=== PATIENT | female | born 1970 ===

== ENCOUNTER 2024-07-12 11:56 | Emergency (ER) | payer OTHER, SELFPAY ==
[2024-07-12 11:57] VITALS: BP 152/93
--- NOTE | 2024-07-12 12:21 | ED.GENMED ---
History of Present Illness
General
Chief Complaint: Abdominal Symptoms
Source: patient
Time Seen by Provider: 07/12/24 12:05
History of Present Illness
History of Present Illness:
54yoF with a history of psoriatic and rheumatoid arthritis on Rivoq, type 2 diabetes, obesity, and asthma presenting for evaluation of flank pain. She started with R flank pain yesterday. Pain started to radiate to the RUQ today. Pain waxes and
wanes. Pain improves with certain positions. She also reports urinary frequency over the past 2 days. She is having nausea but denies any vomiting. She believes she has a kidney stone but denies any history of this. She denies any fevers, chills,
dysuria, vomiting, chest pain, shortness of breath.
Past History
Past History
ED Past Medical History: Asthma, NIDDM and Other (IBS, psoriasis, anxiety, pneumonia)
Social History
Tobacco: Smoker
Phy Exam
General Physical Exam
General Presentation: well appearing and no apparent distress
General age: appears stated age
General Skin: warm and dry
General Habitus: normal
General Mental: alert
ENT Exam
ENT Exam: normocephalic
Cardiovascular Exam
Cardiovascular Exam: regular rate/rhythm and no murmur
Pulmonary Exam
Pulmonary Exam: lungs clear, no respiratory distress, no rales, no crackles, no rhonchi and no wheezing
Gastrointestinal Exam
Gastrointestinal Exam: soft, non distended, no cva tenderness and other (+RUQ tenderness on exam. Negative Watson's sign. No CVA tenderness. No rebound or guarding.)
Neurological Exam
Neurological Exam: alert
[place] Coma Scale
Eye Opening: Spontaneous
Verbal Response: Oriented
Motor Response: Obeys Commands
GCS Total Score: 15
Skin Exam
Skin Exam: normal color and warm/dry
Psychiatric Exam
Psychiatric Exam: normal mood/affect
Course
Orders/Labs/Results
Orders:
Orders
07/12/24 12:20
CT Abd/pel Without Iv Or Oral Urgent
Comment:
Reason For Exam: R flank pain
0.9% Sodium Chloride 500 ml [Nss] 500 ml IV BOLUS
HYDROmorphone [Dilaudid] 0.5 mg IV NOW STA
Ondansetron Injectable [Zofran] 4 mg IV NOW STA
07/12/24 12:26
0.9% Sodium Chloride 1000 ml [Nss] 1,000 ml IV BOLUS
07/12/24 12:46
Complete Blood Count/With Diff Urgent
Comprehensive Metabolic Panel Urgent
Lipase Urgent
07/12/24 12:49
Urinalysis Reflex To Culture Urgent
Date Specimen was Collected: 07/12/24
Time Specimen was Collected: 12:46
Urine Microscopic Reflex Cult Urgent
07/12/24 13:18
US Abdomen Limited Urgent
Reason For Exam: RUQ pain, elevated lipase
07/12/24 13:25
D-Dimer Urgent
07/12/24 14:06
CR Chest - 2 Views Urgent
Comment:
Reason For Exam: R flank pain
Abnormal Lab Results
07/12/24 07/12/24
12:46 12:49
MCH 31.5 H pg
(27.0-31.0)
Creatinine 0.5 L mg/dL
(0.6-1.0)
AST 44 H U/L
(14-36)
ALT 39 H U/L
(0-35)
Lipase 643 H U/L
(23-300)
Leukocyte Esterase Rfl Trace A
(Negative)
Urine Bacteria (Reflex) Few A
(Negative)
07/12/24 12:46
07/12/24 12:46
Vital Signs
Initial and Last Documented VS:
Initial Vital Signs
Temp Pulse Resp BP Pulse Ox
98.3 F 74 16 152/93 98
07/12/24 11:57 07/12/24 11:57 07/12/24 11:57 07/12/24 11:57 07/12/24 11:57
Last Documented Vital Signs
Temp Pulse Resp BP Pulse Ox
98.3 F 69 20 134/79 95
07/12/24 11:57 07/12/24 18:05 07/12/24 18:05 07/12/24 18:05 07/12/24 18:05
MDM/Problems Addressed
Differential Diagnosis Includes:
54yoF here with R flank pain since yesterday. Radiates to RUQ. Also c/o urinary frequency and nausea. She is afebrile and hemodynamically stable. She is well appearing in no distress. No CVA tenderness or signs of peritonitis on abdominal exam.
Differential diagnosis includes but is not limited to: kidney stone, pyelonephritis, biliary colic, musculoskeletal
Initial ED plan: Check abdominal labs, UA, and CT abdomen without contrast. IV Dilaudid, Zofran, and fluid bolus for symptoms.
*Critical Care Note
Total Time (30-74mins, 75-104mins- exclusive of procedures): Not Applicable
Update Note
Update Note:
Labs reveal a mild transaminitis with AST 44 and ALT 39 which are improved from prior labs. Lipase also elevated at 643 which is <3x ULN. Remainder of labs unremarkable including normal white count and renal function. No overt signs of infection
on urinalysis. CT is negative for ureterolithiasis. Gallbladder and pancreas appear normal on CT. D-dimer and CXR added which are normal. RUQ ultrasound obtained which is negative other than mild fatty liver. Patient feeling improved on
reassessment. Unclear etiology of symptoms, possibly musculoskeletal vs. passed gallstone vs. early shingles. Exam and history inconsistent with pancreatitis. No indication for hospitalization at this time and patient would like to go home.
Supportive care discussed and prescription provided for Zofran. Advised follow-up with PCP and ED return precautions discussed. She was discharged in stable condition.
ED Attending Note
-
Portions of this chart may have been created with voice recognition software.� Occasional wrong word or��sound alike� substitutions may have occurred due to the inherent limitations of voice recognition software.
Discharge Plan
Departure
Patient Disposition: Home (Routine Discharge)
Date of Disposition: 07/12/24
Time of Disposition: 17:32
Patient with high blood pressure during this ER visit?: Yes
Discharge Problem:
Right flank pain, Right upper quadrant abdominal pain
Instructions: Flank Pain (DC)
Prescriptions:
New
ondansetron 4 mg tablet,disintegrating
4 mg PO Q6H PRN (Reason: nausea and vomiting) Qty: 20 0RF
No Action
metformin 500 MG tablet
500 mg PO BID
cetirizine 10 MG tablet
10 mg PO DAILY
zolpidem 10 MG tablet
10 mg PO HS
Patient Comments:
02/07/22 pt picked up 01/21/22 #30
albuterol sulfate 1 PUFF HFA aerosol inhaler
2 puff inhalation R Q4HPRN PRN (Reason: sob)
rosuvastatin 10 MG tablet
10 mg PO HS
fluticasone propion-salmeterol 1 EACH aerosol powdr breath activated
1 puff inhalation R BID
sumatriptan succinate 100 MG tablet
100 mg PO DAILYPRN PRN (Reason: migraines)
pantoprazole 40 MG tablet,delayed release (DR/EC)
40 mg PO DAILYPRN PRN (Reason: INDIGESTION)
cholecalciferol (vitamin D3) [Vitamin D3] 125 mcg (5,000 unit) Tablet
125 mcg PO DAILY
Rinvoq 15 mg Tablet Extended Release 24 Hr
15 mg PO DAILY
Referrals:
Abram Rubio MD [Family Provider] -
Activity Restrictions/Additional Instructions:
Apply heat to affected area. Take Tylenol and ibuprofen as needed for pain. Take Zofran as needed for nausea.
Please follow-up with your family doctor. Return to the ER with any new or worsening symptoms.
Interventions
Interventions:
*Risk Screen - Suicide Last Done: 07/12/24 11:57
*General Assessment Last Done: 07/12/24 11:57
*Neglect/Abuse Screening Last Done: 07/12/24 11:57
ED- Fall Risk Assessment Last Done: 07/12/24 15:08
*ED COVID-19 Vaccine History Last Done: 07/12/24 13:28
*Nursing Disposition Last Done: 07/12/24 18:05
TT-Xhfozo-Mnullgeokr Assessment Last Done: 07/12/24 16:58
Discharge Date and Time
Discharge Date/Time: 07/12/24 18:09
Print Language: SYRIAC
[2024-07-12] MEDS: NSS 1000 IV (12:47)
[2024-07-12] MEDS: DILAUDID 0.5 MG IV (12:48)
[2024-07-12] MEDS: ZOFRAN 4 MG IV (12:48)
[2024-07-12 13:01] LABS: Urine Albumin Negative (Neg - Trace); Urine Bilirubin Negative (Negative); Urine Character Clear (Clear); Urine Color Yellow; Urine Glucose Negative (Negative); Urine Ketone Negative (Negative); Urine Leukocyte Trace (Negative); Urine Nitrite Negative (Negative); Urine Occult Blood Negative (Negative); Urine Urobilinogen Negative (Neg - 1+)
[2024-07-12 13:02] LABS: % Basophils 0.4 % (0-2); % Eosinophils 0.6 % (0-6); % Immature Granulocytes 0.3 % (0-0.5); % Lymphocytes 39.5 % (20.5-51.1); % Monocytes 8.6 % (1.7-9.3); % Neutrophils 50.6 % (42.2-75.2); Absolute Lymphocytes 2.8 10^3/uL (1.2-3.4); Absolute Monocytes 0.6 10^3/uL (0.1-0.6); Absolute Neutrophils 3.6 10^3/uL (1.4-6.5); Hematocrit 41.5 % (37.0-47.0); Hemoglobin 13.7 g/dL (12.0-16.0); Mean Corpuscular Hgb 31.5 pg (27.0-31.0); Mean Corpuscular Volume 95.4 fL (81.0-99.0); Mean Platelet Volume 9.1 fL (7.4-10.4); Nucleated Red Blood Cells % 0 %; Platelet Count 384 10^3/uL (130-400); Red Blood Cell Count 4.35 10^6/uL (4.20-5.40); Red Cell Dist. Width 13.7 % (11.5-14.5); White Blood Cell Count 7.1 10^3/uL (4.8-10.8)
[2024-07-12 13:13] LABS: ALT (SGPT) 39 U/L (0-35); AST (SGOT) 44 U/L (14-36); Albumin 4.5 g/dl (3.5-5.0); Alkaline Phosphatase 111 U/L (38-126); Blood Urea Nitrogen 13 mg/dl (7-17); Calcium 9.5 mg/dl (8.4-10.2); Carbon Dioxide 29 mmol/L (22-30); Chloride 105 mmol/L (98-107); Glucose 97 mg/dl (70-99); Lipase 643 U/L (23-300); Potassium 4.3 mmol/L (3.5-5.1); Sodium 141 mmol/L (135-145); Total Bilirubin 0.2 mg/dl (0.2-1.3); Total Protein 6.7 g/dl (6.3-8.2); eGFR > 60.00
[2024-07-12 13:28] VITALS: BMI 42.4
[2024-07-12 13:32] LABS: Urine Bacteria Few (Negative); Urine Red Blood Cell 0-2 /HPF (0-2); Urine White Cell 0-2 /HPF (0-5)
[2024-07-12 14:00] LABS: D-Dimer < 0.27 ug/mlFEU (0.00-0.50)
[2024-07-12 16:05] VITALS: BP 132/75
[2024-07-12 17:45] VITALS: BP 134/79
[2024-07-12 18:05] VITALS: BP 134/79
== END 2024-07-12 18:09 | disposition home or self-care (01) ==
LOC: EMR 11:56
PROVIDERS: Physician Assistant; EMERGENCY PHYSICIAN Emergency Medicine; FAMILY PHYSICIAN Hospitalist
DX: R10.11 Right upper quadrant pain (principal); K76.0 Fatty (change of) liver, not elsewhere classified; E11.9 Type 2 diabetes mellitus without complications; J45.909 Unspecified asthma, uncomplicated; F17.200 Nicotine dependence, unspecified, uncomplicated; M06.9 Rheumatoid arthritis, unspecified
CPT/HCPCS: 99284; 96374; 96375; 96361; 71046; 74176; 76705; 80053; 81003; 81015; 83690; 85025; 85379

== ENCOUNTER 2025-08-08 13:43 | Inpatient (IN) | payer OTHER, SELFPAY ==
[2025-08-08 09:29] VITALS: BP 124/95
--- NOTE | 2025-08-08 10:22 | ED.GENMED ---
History of Present Illness
<Gilberto Patel MD, Resident - Last Filed: 08/08/25 13:04>
General
Chief Complaint: Ear Problem
Time Seen by Provider: 08/08/25 09:58
History of Present Illness
History of Present Illness:
55 yo F PMH psoriatic arthritis, eczema, alopecia areata on rinvoq, COPD, T2DM (last a1c 5.3%) p/w right ear pain for 5-6 days duration.
She used a neti pot 2 weeks ago, and heard a loud pop but symptoms began since 5-6 days ago. She describes sharp stabbing pain 8/10 severity near right ear, associated with some hearing loss, tinnitus, pulsatile sensation. She reports a sensation of
dysequlibrium but denies vertigo. She denies changes in vision, or focal weakness.
On monday, she started a course of amoxicillin but reports that her pain has not improved.
She also endorses fevers at home.
She denies any exposure to water or recent airplane travel.
She has used tylenol and nsaids for the pain control.
She otherwise denies chest pain, dyspnea.
Social: ongoing, current smoker
no EtOH
no recreational drugs
Past History
<Gilberto Patel MD, Resident - Last Filed: 08/08/25 13:04>
Past History
ED Past Medical History: Asthma, NIDDM and Other (IBS, psoriasis, anxiety, pneumonia)
Social History
Tobacco: Smoker
Alcohol: None
Drug: None
Phy Exam
<Gilberto Patel MD, Resident - Last Filed: 08/08/25 13:04>
Physical Exam
Physical Exam:
VS: BP 124/95; HR 105; T 99.3; SpO2 95%
General: appears to be in some distress
HEENT: right tympanic membrane appears erythematous but no purulence on my exam. right ear pinna is swollen, erythematous, and tender to palpation. region behind right ear is also tender to palpation on my exam.
Neuro: PERRLA, EOMI, upper and lower extremities are grossly intact
CV: no murmurs on my exam
Pulm: CTAB
GI: no tenderness to palpation
MSK: no lower extremity edema
Course
<Gilberto Patel MD, Resident - Last Filed: 08/08/25 13:04>
Orders/Labs/Results
Orders:
Orders
08/08/25 10:30
[address] Facial Bones W/o Iv Contras Urgent
Comment: please image mastoids
Reason For Exam: right ear pain, right mastoid tenderness
08/08/25 10:32
Ketorolac [Toradol] 15 mg IV NOW ONE
08/08/25 10:39
CRP [C-Reactive Protein] Urgent
Complete Blood Count/With Diff Urgent
Comprehensive Metabolic Panel Urgent
ESR [Erythrocyte Sed Rate] Urgent
08/08/25 11:57
Morphine Sulfate 4 mg IV NOW ONE
Ondansetron Injectable [Zofran] 4 mg IV NOW ONE
08/08/25 12:53
Aztreonam [Azactam] 2,000 mg IV NOW STA
MetroNIDAZOLE 500 MG/100 ML [Flagyl 500 mg] 100 ml IV NOW
Vancomycin [Vancocin] 2,000 mg 0.9% Sodium Chloride 500 ml [Nss] 500 ml IV NOW
08/08/25 12:59
Sterile Water [Sterile Water For Injection] 10 ml .ROUTE .STK-MED ONE
Abnormal Lab Results
08/08/25
10:39
RBC 4.14 L 10^6/uL
(4.20-5.40)
Absolute Lymphs (auto) 1.1 L 10^3/uL
(1.2-3.4)
Absolute Monos (auto) 0.7 H 10^3/uL
(0.1-0.6)
Neutrophils % 75.4 H %
(42.2-75.2)
Lymphocytes % 14.3 L %
(20.5-51.1)
Monocytes % 9.4 H %
(1.7-9.3)
ESR 32 H mm/hour
(0-20)
Creatinine 0.5 L mg/dL
(0.6-1.0)
C-Reactive Protein 72.00 H mg/L
(0.0-10.00)
08/08/25 10:39
08/08/25 10:39
Vital Signs
Initial and Last Documented VS:
Initial Vital Signs
Temp Pulse Resp BP Pulse Ox
99.3 F 105 16 124/95 95
08/08/25 09:29 08/08/25 09:29 08/08/25 09:29 08/08/25 09:29 08/08/25 09:29
Last Documented Vital Signs
Temp Pulse Resp BP Pulse Ox
99.3 F 105 16 124/95 95
08/08/25 09:29 08/08/25 09:29 08/08/25 09:29 08/08/25 09:29 08/08/25 10:22
<Orville Ortiz, DO - Last Filed: 08/08/25 13:11>
Orders/Labs/Results
Orders:
Orders
08/08/25 10:30
CT Facial Bones W/o Iv Contras Urgent
Comment: please image mastoids
Reason For Exam: right ear pain, right mastoid tenderness
08/08/25 10:32
Ketorolac [Toradol] 15 mg IV NOW ONE
08/08/25 10:39
CRP [C-Reactive Protein] Urgent
Complete Blood Count/With Diff Urgent
Comprehensive Metabolic Panel Urgent
ESR [Erythrocyte Sed Rate] Urgent
08/08/25 11:57
Morphine Sulfate 4 mg IV NOW ONE
Ondansetron Injectable [Zofran] 4 mg IV NOW ONE
08/08/25 12:53
Aztreonam [Azactam] 2,000 mg IV NOW STA
MetroNIDAZOLE 500 MG/100 ML [Flagyl 500 mg] 100 ml IV NOW
Vancomycin [Vancocin] 2,000 mg 0.9% Sodium Chloride 500 ml [Nss] 500 ml IV NOW
08/08/25 12:59
Sterile Water [Sterile Water For Injection] 10 ml .ROUTE .STK-MED ONE
Abnormal Lab Results
08/08/25
10:39
RBC 4.14 L 10^6/uL
(4.20-5.40)
Absolute Lymphs (auto) 1.1 L 10^3/uL
(1.2-3.4)
Absolute Monos (auto) 0.7 H 10^3/uL
(0.1-0.6)
Neutrophils % 75.4 H %
(42.2-75.2)
Lymphocytes % 14.3 L %
(20.5-51.1)
Monocytes % 9.4 H %
(1.7-9.3)
ESR 32 H mm/hour
(0-20)
Creatinine 0.5 L mg/dL
(0.6-1.0)
C-Reactive Protein 72.00 H mg/L
(0.0-10.00)
08/08/25 10:39
08/08/25 10:39
Vital Signs
Initial and Last Documented VS:
Initial Vital Signs
Temp Pulse Resp BP Pulse Ox
99.3 F 105 16 124/95 95
08/08/25 09:29 08/08/25 09:29 08/08/25 09:29 08/08/25 09:29 08/08/25 09:29
Last Documented Vital Signs
Temp Pulse Resp BP Pulse Ox
99.3 F 105 16 124/95 95
08/08/25 09:29 08/08/25 09:29 08/08/25 09:29 08/08/25 09:29 08/08/25 10:22
<Gilberto Patel MD, Resident - Last Filed: 08/08/25 13:04>
MDM/Problems Addressed
Differential Diagnosis Includes:
acute otitis externa, acute otitis media, mastoiditis, barotrauma, abscess
MDM/Problems Addressed:
right ear pain, without improvement on amoxicillin. Could be otitis media with erythematous tympanic membrane or externa since the pinna is tender/swollen. mastoiditis can be considered because she reports some tenderness near the mastoid.
She is immunocompromised with rinvoq usage and [facility] T2DM.
reassuringly, she is otherwise neurologically intact without any focal deficits.
Plan:
CBC
CMP
ESR
CRP
CT facial bones w/o IV contrast for imaging mastoids
IV toradol 15mg once for pain control
Update:
patient reports persistent pain despite toradol
morphine 4mg IV once and ondansetron 4mg IV once administered
Update:
CT facial bones showed right otomastoiditis
IV aztreonam, IV vancomycin, IV metronidazole ordered
Dispo: admit
<Gilberto Patel MD, Resident - Last Filed: 08/08/25 13:04>
*Pulse Oximetry
SaO2: 95
Oxygen Mode of Delivery: Room air
Patient hypoxic: no
*Critical Care Note
Total Time (30-74mins, 75-104mins- exclusive of procedures): Not Applicable
ED Attending Note
<Gilberto Patel MD, Resident - Last Filed: 08/08/25 13:04>
-
Portions of this chart may have been created with voice recognition software.� Occasional wrong word or��sound alike� substitutions may have occurred due to the inherent limitations of voice recognition software.
<Orville Ortiz, DO - Last Filed: 08/08/25 13:11>
ED Attending Note
Patient seen and examined by attending physician: Yes
I performed a history and physical exam of patient and discussed management with resident, I reviewed resident's note and agree with documented findings and plan of care.: Yes
ED Attending Note:
I have reviewed and agree with history treatment plan by Gilberto Patel MD. My exam revealed mild right mastoid tenderness, erythematous right tympanic membrane. Suspect otitis media, will rule out mastoiditis with CT scan. Treat with zosyn,
vancomycin for mastoiditis.
Discharge Plan
Departure
Patient Disposition: Admit
Date of Disposition: 08/08/25
Time of Disposition: 13:02
Presentation/result/management discussed w/ accepting MD/DO: Hospitalist
Patient with high blood pressure during this ER visit?: Yes
Condition: Good
Discharge Problem:
Acute mastoiditis
Prescriptions:
No Action
metformin 500 MG tablet
500 mg PO BID
cetirizine 10 MG tablet
10 mg PO DAILY
zolpidem 10 MG tablet
10 mg PO HS
Patient Comments:
02/07/22 pt picked up 01/21/22 #30
albuterol sulfate 1 PUFF HFA aerosol inhaler
2 puff inhalation R Q4HPRN PRN (Reason: sob)
rosuvastatin 10 MG tablet
10 mg PO HS
fluticasone propion-salmeterol 1 EACH aerosol powdr breath activated
1 puff inhalation R BID
sumatriptan succinate 100 MG tablet
100 mg PO DAILYPRN PRN (Reason: migraines)
pantoprazole 40 MG tablet,delayed release (DR/EC)
40 mg PO DAILYPRN PRN (Reason: INDIGESTION)
cholecalciferol (vitamin D3) [Vitamin D3] 125 mcg (5,000 unit) Tablet
125 mcg PO DAILY
Rinvoq 15 mg Tablet Extended Release 24 Hr
15 mg PO DAILY
ondansetron 4 mg tablet,disintegrating
4 mg PO Q6H PRN (Reason: nausea and vomiting) Qty: 20 0RF
Referrals:
Abram Rubio MD [Family Provider]
Interventions
Interventions:
*General Assessment Last Done: 08/08/25 10:20
*Neglect/Abuse Screening Last Done: 08/08/25 09:31
*ED COVID-19 Vaccine History Last Done: 08/08/25 10:20
*ED Influenza Vaccine History Last Done: 08/08/25 10:20
*Risk Screen - Suicide (C-SSRS) Last Done: 08/08/25 09:31
Discharge Date and Time
Print Language: UPPER SORBIAN
[2025-08-08 10:39] VITALS: BMI 38.0
[2025-08-08] MEDS: TORADOL 15 MG IV (10:43)
[2025-08-08 10:54] LABS: Hematocrit 38.1 % (37.0-47.0); Hemoglobin 12.8 g/dL (12.0-16.0); Mean Corp Hgb Conc. 33.6 g/dL (33.0-37.0); Mean Corpuscular Volume 92.0 fL (81.0-99.0); Nucleated Red Blood Cells % 0 %; Platelet Count 304 10^3/uL (130-400); Red Cell Dist. Width 14.1 % (11.5-14.5)
[2025-08-08 11:19] LABS: C-Reactive Protein 72.00 mg/L (0.0-10.00)
[2025-08-08 11:33] LABS: ALT (SGPT) 17 U/L (0-35); AST (SGOT) 25 U/L (14-36); Albumin 4.2 g/dl (3.5-5.0); Alkaline Phosphatase 65 U/L (38-126); Blood Urea Nitrogen 8 mg/dl (7-17); Calcium 9.2 mg/dl (8.4-10.2); Carbon Dioxide 28 mmol/L (22-30); Chloride 104 mmol/L (98-107); Estimated Creatinine Clearance 119 ml/min; Glucose 71 mg/dl (70-99); Potassium 4.3 mmol/L (3.5-5.1); Sodium 137 mmol/L (135-145); Total Protein 6.7 g/dl (6.3-8.2); eGFR > 60.00
--- NOTE | 2025-08-08 11:51 | EDRN ---
Updated patient on labs and that still waiting for CT read, reports pain meds did not touch her pain, informed provider
[2025-08-08] MEDS: ZOFRAN 4 MG IV (12:02)
[2025-08-08] MEDS: MORPHINE SULFATE 4 MG IV (12:03)
--- NOTE | 2025-08-08 13:00 | W.PN.UPDATE ---
Update Note
Progress Note Update
This note serves as an addendum to the H&P by dairy bar manager Tad PETERSON
HPI
55M Obese current heavy smoker ( 1ppd)
HX DMT2 chr Rinvoq (TONY inhibitor) for eczema, psoriatic arthritis, alopecia aerata, on Wegovy for Obesity
- seen at ER for Rt mastoid tenderness
- report fever and chills at ER
- [employer] Day 4 of Amoxicillin and tolerating
- Prior HX of anaphylaxis reaction to Ceftin plus ADEs to Avelox
- Hold of Aztreonam per ER
Relevant VS
08/08/25
09:29
Temp 99.3 F
Pulse 105
Resp Rate 16
Blood pressure 124/95
SaO2 95
Oxygen Mode of Delivery Room air
PE:
Class II Obese BMT 38
Gen: Not toxic
HEENT:
- Severe Rt mastoid tenderness
- No purulent drainage via EAC
- mild R Maxillary tenderness
Neck: supple
Lungs: CTA
Cor: RRR ST no murmur
Abdomen: soft obese
BLOW UP OPERATOR: AAO3, NFND
MS: no edema
Psych: Nl mood and affect
Relevant Data
Labs
08/08/25
10:39
WBC 7.9
Creatinine 0.5 L
eGFR > 60.00
C-Reactive Protein 72.00 H
2 X BCx sent before just before IV vancomycin
Facial bone CT WO
Findings consistent with right otomastoiditis.
ASSESSMENT & PLAN
Immuno compromised host being on Rinvoq (TONY inhibitor) for eczema, psoriatic arthritis
- BCx sent
- Hold Rinvoq and Wegovy
R otomastoiditis per clinical and CT evidence
Severe Rt mastoid tenderness
- No purulent drainage via EAC
- mild R Maxillary tenderness
- s/p amoxicillin 4 days before coming to ED.
- s/p IV vancomycin + IV metronidazole at ER
- Hold IV aztreonam in ED
- Will cont Zosyn alone for now
- counseled to stop smoking
- ENT consulted
DMT2
- Hold Metformin
- add ISS low
Sinus tachy suspect Nicotine WD
- Nicotine [employer]TER if she wish
DVT Px: LMWH
Full code
IP MS
[2025-08-08] MEDS: VANCOCIN 540 MG IV (13:15)
--- NOTE | 2025-08-08 13:24 | HPS.HSE ---
Family Physician
-
Family Physician: Abram Rubio MD
Chief Complaint
-
Right Ear Pain
History of Present Illness
Patient is a 55 y/o female past medical history of diabetes, hyperlipidemia, asthma/COPD, and eczema/psoriatic/alopecia on Rinvoq who presents with severe right ear pain. Patient reports she used a Neti-Pot about 2 weeks ago and heard a loud pop.
About 5 days ago she developed severe right ear pain. She reports associated fevers at the onset of symptoms. She reports she is unable to hear out of the right ear, and associated tinnitus sometimes. She has been taking amoxicillin for the past
4 days without any improvement in the pain in her ear.y
Medical History
Past Medical History
Past Medical History: Reports Other
Additional Past Medical History:
Diabetes Mellitus, Type II
Hyperlipidemia
Asthma / COPD
Eczema
Psoriatic Arthritis
Alopecia Areata
Past Surgical History: Reports Other
Social History
Tobacco: Smoker (~1 PPD)
Family History
Family History: Not pertinent
Allergies / Home Medications
Allergies reflects when Allergies were last updated in [employer].
Home Medications with original date entered in [employer]
Allergy/Medication List:
Allergies
Allergy/AdvReac Type Severity Reaction Status Date / Time
cefuroxime (From Ceftin) Allergy Anaphylaxis Verified 07/12/24 11:57
moxifloxacin (From Avelox) Allergy Nausea Verified 07/12/24 11:57
Home Medications
metformin 500 mg tablet 500 mg PO BID Diabetes 02/05/22
zolpidem 10 mg tablet 10 mg PO HS Sleep 02/05/22
rosuvastatin 10 mg tablet 10 mg PO HS High cholesterol 02/07/22
amoxicillin 875 mg tablet 875 mg PO BID Infection 08/08/25
semaglutide (weight loss) 2.4 mg/0.75 mL subcutaneous pen injector (Wegovy) 2.4 mg SC MO Weight Gain 08/08/25
tapinarof 1 % topical cream (Vtama) 1 applic topical DAILYPRN PRN skin issuses 08/08/25
upadacitinib 30 mg tablet,extended release 24 hr (Rinvoq) 30 mg PO DAILY 08/08/25
Review of Systems
-
A 12 point ROS was completed and negative except as noted: Yes
Constitutional: Reports Fever
Respiratory: Denies Cough or Trouble Breathing
Cardiac: Denies Chest Pain or Palpitations
Physical Exam
Vital Signs
Vital Signs
Temp Pulse Resp BP Pulse Ox
99.3 F 105 16 124/95 95
08/08/25 09:29 08/08/25 09:29 08/08/25 09:29 08/08/25 09:29 08/08/25 10:22
Physical Exam
General: Comfortable and Conversant
HEENT: Anicteric, Moist mucous membranes and Other (Significant tenderness to palpation right mastoid area; Neck supple)
Respiratory: Clear and Non Labored Respirations
Cardiac: S1/S2 and Regular Rhythm; No Murmur
GI: Soft and Non Tender
Rectal: Deferred by Provider
Musculoskeletal: No No Clubbing or No Cyanosis
Skin: Warm and Dry
Neuro: Awake, Alert, Oriented and Nonfocal/grossly intact
Psych: Calm
Laboratory Results
-
08/08/25 10:39
08/08/25 10:39
Laboratory Results
Total Bilirubin 0.5 mg/dl (0.2-1.3) 08/08/25 10:39
AST 25 U/L (14-36) 08/08/25 10:39
ALT 17 U/L (0-35) 08/08/25 10:39
Alkaline Phosphatase 65 U/L (38-126) 08/08/25 10:39
Data Reviewed
-
Lab Data: Labs Reviewed by me
Impression/Plan
-
Right Otomastoiditis
-Consult ENT
-Continue vancomycin and Zosyn
-Check blood cultures
Diabetes Mellitus, Type II
-Check Hgb1c
-Hold metformin
-Monitor sugars and continue coverage insulin
Hyperlipidemia
-Continue rosuvastatin
Class II Obesity
-Patient using Wegovy as outpatient
-Affects all aspects of care
Nicotine Dependence / Tobacco Use Disorder
-Encourage smoking cessation
-Offered nicotine patch which patient declined
Eczema / Psoriatic Arthritis / Alopecia Areata
-Hold Rinvoq in setting of active infection
DVT proph: Lovenox
Code Status: Full Code
[2025-08-08 13:29] VITALS: BP 112/67
--- NOTE | 2025-08-08 13:30 | EDRN ---
Hospitalist in to see patient and then ENT in to see patient as well, patient being admitted to the hospital, no further complaints at this time.
--- NOTE | 2025-08-08 14:21 | CM ---
Chart reviewed and spoke with patient at ED bedside
She lives with friend Erik
1 SH no JOAN
Independent with ADLs and no DME
PCP Abram Rubio
[facility] in [place]
no hx of VN nor SNF
DCP is to go home no needs
friend can drive home
cm will continue to follow up for any dcp needs
--- NOTE | 2025-08-08 14:46 | CON.MD ---
Consultation - Medical
-
This 55-year-old woman presents with a several day history of right sided hearing loss and ear pain. She has pain around the ear. She has a history of ear infections in the past. She is otherwise pretty healthy. She has not had a cold or sinus
infection. She has been on a course of antibiotics without significant relief of her symptoms. She has a history of mev-pdvdqbv-diorasixf diabetes mellitus CT scan showed evidence of partial opacification of her right mastoid consistent with an
acute ear infection or serous otitis media. There is no evidence of bony erosion.
Past medical history: Acute otitis media, COPD exacerbation, asthma exacerbation, acute respiratory failure with hypoxia
Allergies: The patient is allergic to moxifloxacin which causes nausea and cefuroxime causes anaphylaxis.
Home medications: Amoxicillin 875 mg p.o. twice daily, metformin 500 mg p.o. twice daily, rosuvastatin 10 mg p.o. nightly, semaglutide 2.4 mg subcu on Mondays, tapinarof 1 application topically as needed daily, written Constance 30 mg p.o. daily,
zolpidem 10 mg p.o. nightly
hospitalizations: The patient is currently in the emergency room for right ear pain and decreased hearing
Past surgical history: Noncontributory
Social history: Patient is a non-smoker
Review of systems: The patient has right ear pain and periauricular discomfort, decreased hearing on the right side, left ear does not hurt and does not have decreased hearing
Physical examination:
Head: Atraumatic and normocephalic
Eyes: Extraocular movements are intact and pupils are equal and reactive to light
Nose: Normal without infection
Oral cavity/oropharynx: The patient has evidence of bruxism and tongue thrust with bite davis on her buccal mucosa and pressure davis on her tongue.
Ears: Right ear shows mild acute otitis media. There is no evidence of rupture of the eardrum and no evidence of perforation. No drainage is seen. Left ear is clear
Cranial nerves II through XII: Intact
Voice: Normal tone and volume
Thyroid gland: Normal
Salivary glands: Normal
Skull: No evidence of fluctuance or subperiosteal abscess
CT scan of the face was evaluated. She was noted to have partial opacification of her right middle ear and mastoid cavity without evidence of bony erosion. There is no coalescence.
Impression/plan: This 55-year-old woman presents with right ear pain and decreased hearing. She has an acute ear infection. She has had these before. She has not had a cold or sinus infection. She also has pain from TMJ. She has significant
evidence of bruxism and tongue thrust.
She does not have clinical mastoiditis. She has an acute ear infection and radiologic mastoiditis is consistent with this diagnosis. She needs antibiotics and pain control. I had a fairly extensive discussion with her regarding the fact that she
needs to relax her jaw and avoid clenching her teeth. She should avoid chewy and crunchy foods. Heat and Advil would be helpful. She should relax her jaw. I will plan on seeing her back in the office in a week or 2. She would benefit from
Flonase nasal spray in terms of helping resolve the fluid in her ear.
Consultation
-
Date/Time Consultation Requested: 08/08/25 130pm
Date/Time Consultation Performed: 08/08/25 200pm
Requesting Provider: ER
Performing Provider: [facility]
Reason for Consultation: Right ear pain and decreased hearing
--- NOTE | 2025-08-08 15:15 | EDRN ---
Report to CARISSA Smith
[2025-08-08 15:21] VITALS: BP 118/75
[2025-08-08] MEDS: DILAUDID 0.25 MG IV ×2 (16:27→21:57)
[2025-08-08] MEDS: ZOSYN 50 IV ×2 (16:33→22:01)
[2025-08-08 16:35] VITALS: BP 106/67
[2025-08-08 17:51] VITALS: BP 139/78; BMI 37.1
[2025-08-08 17:51] LABS: Glucose - Point of Care 94 mg/dl (70-99)
[2025-08-08] MEDS: LOVENOX 40 MG SC (18:27)
--- NOTE | 2025-08-08 19:43 | PHA.VAN.IN ---
Assessment
- Assessment
Renal Function: Appears similar to baseline
Concomitant Antimicrobials: PIPERACILLIN/TAZO
AUC Dosing Plan
- Dosing Variables
Dosing Weight (kg): 98
Dosing CrCl (ml/min): 118
Vd coefficient (L/kg): Adj. to 0.6 w. BMI 37.1
- Empiric Dosing
Initial / Loading Dose: VANCOMYCIN 2000 MG IV ~ 1315
Maintenance Regimen: VANCOMYCIN 1500 MG IV Q12H
Estimated AUC (mcg*h/mL): 537
Estimated Peak (mcg*h/mL): 36
Estimated Trough (mcg/ml): 12.3
Estimated Half Life (H): 6.8
- Monitoring
No levels ordered at this time: Please consider levels in next few days. pharmacy will follow.
Pharmacokinetics Vancomycin I
- -
Patient Age: 55
Patient Sex: Female
Vancomycin Day #: 1
Indication: Eye Or Ent Infection
Requesting Provider: Charisse Chilel PA-C
Pertinent Antimicrobial Allergies:
Cefuroxime w. anaphylaxis.
Height / Weight:
Height 5 ft 4 in
Actual Weight 98.033 kg
Pertinent Past Medical History: NIIDM pt presented w. Right Ear Pain.
- Vital Signs / Lab Results
Temp Pulse Resp BP Pulse Ox
98.3 F 66 18 139/78 93
08/08/25 17:51 08/08/25 17:51 08/08/25 17:51 08/08/25 17:51 08/08/25 18:08
Lab Results - Hematology
08/08/25
10:39
WBC 7.9
Lab Results - Chemistry
08/08/25
10:39
BUN 8
Creatinine 0.5 L
Estimated Creat Clear 119
Albumin 4.2
[2025-08-08 21:33] LABS: Glucose - Point of Care 86 mg/dl (70-99)
[2025-08-08] MEDS: AMBIEN 10 MG PO (21:54)
[2025-08-08] MEDS: CRESTOR 10 MG PO (21:54)
[2025-08-08 23:27] VITALS: BP 99/59
[2025-08-09 00:27] VITALS: BP 99/59
[2025-08-09] MEDS: ZOSYN 50 IV ×2 (04:38→09:33)
[2025-08-09] MEDS: DILAUDID 0.25 MG IV (04:43)
[2025-08-09] MEDS: VANCOCIN 530 MG IV (06:02)
[2025-08-09] MEDS: TORADOL 10 MG IV (06:13)
[2025-08-09 07:00] VITALS: BP 110/64
[2025-08-09 07:39] LABS: Hematocrit 36.6 % (37.0-47.0); Hemoglobin 11.8 g/dL (12.0-16.0); Mean Corp Hgb Conc. 32.2 g/dL (33.0-37.0); Mean Corpuscular Volume 94.6 fL (81.0-99.0); Platelet Count 311 10^3/uL (130-400); Red Cell Dist. Width 14.1 % (11.5-14.5)
[2025-08-09 08:39] LABS: Glucose - Point of Care 111 mg/dl (70-99)
[2025-08-09 08:54] LABS: Blood Urea Nitrogen 9 mg/dl (7-17); Calcium 8.8 mg/dl (8.4-10.2); Carbon Dioxide 28 mmol/L (22-30); Chloride 104 mmol/L (98-107); Estimated Creatinine Clearance 118 ml/min; Glucose 86 mg/dl (70-99); Potassium 4.4 mmol/L (3.5-5.1); Sodium 138 mmol/L (135-145); eGFR > 60.00
--- NOTE | 2025-08-09 09:11 | PHA.VAN.FU ---
Vancomycin Assessment / Plan
- Assessment
Renal Function: Stable
WBC's are: WNL
In the past 24 hrs, patient has been: Afebrile
Concomitant Antimicrobials: PIPERACILLIN/TAZOBACTAM
- Dosing Plan
Continue: VANCO 1500MG Q12H
- Monitoring Plan
No level(s) ordered at this time: CONSIDER LEVEL AT STEADY STATE
- Follow Up
Pharmacy will continue to follow.
Vancomycin Follow UP
- -
Patient Age: 55
Patient Sex: Female
Vancomycin Day #: 2
Indication: Eye Or Ent Infection
Requesting Provider: Charisse Chilel PA-C
Pertinent Antimicrobial Allergies:
Cefuroxime w. anaphylaxis.
Height / Weight:
Height 5 ft 4 in
Actual Weight 98.033 kg
Pertinent Past Medical History: NIIDM pt presented w. Right Ear Pain.
- Vital Signs / Lab Results
Temp Pulse Resp BP Pulse Ox
99 F 63 16 110/64 96
08/09/25 07:00 08/09/25 07:00 08/09/25 07:00 08/09/25 07:00 08/09/25 07:00
Lab Results - Hematology
08/08/25 08/09/25
10:39 07:04
WBC 7.9 5.4
Lab Results - Chemistry
08/08/25 08/09/25
10:39 07:04
BUN 8 9
Creatinine 0.5 L 0.5 L
Estimated Creat Clear 119 118
Albumin 4.2
Microbiology Results
08/08/25 17:55 Nasal Screen MRSA (PCR) - Final
Nose MRSA not detected - performed by PCR methodology.
[2025-08-09] MEDS: FLUSH (NSS) 1 FLUSH IV (09:33)
--- NOTE | 2025-08-09 10:04 | W.PN.HOSP.TC ---
Today's Communication/Plan
-
dc to home
ENT f/u in 1 week
Assessment / Plan
Assessment / Plan
Assessment:
Right Otomastoiditis
- ENT consult appreciated; although radiographic mastoiditis, no clinical concern for mastoiditis
- Dr. Mathew discussed with Dr. Hamm 08/09; recommended to transition to Augmentin for 10 days
- Pain control (Tramadol, Advil)
- ENT f/u in office in 1 week.
Diabetes Mellitus, Type II
- resume Metformin at discharge
- A1c: pending. PCP f/u
Hyperlipidemia
- continue rosuvastatin
Class II Obesity
- Patient using Wegovy as outpatient
- Affects all aspects of care
Nicotine Dependence/Tobacco Use Disorder
- Encourage smoking cessation
- Offered nicotine patch which patient declined
Eczema/Psoriatic Arthritis/Alopecia Areata
- Hold Rinvoq in setting of active infection
DVT ppx: Lovenox
Code Status: Full Code
Anticipated Discharge: > 48 hours
Subjective/Interval History
-
Date of Service: August 09, 2025
pain more controlled than admission, less intense
no fevers
tolerating Zosyn and has tolerated Augmentin previously
Objective Data
-
Labs:
Laboratory Results
08/09/25
07:04
WBC 5.4
Hgb 11.8 L
Hct 36.6 L
Plt Count 311
Sodium 138
Potassium 4.4
Chloride 104
Carbon Dioxide 28
BUN 9
Creatinine 0.5 L
Glucose 86
Calcium 8.8
Vital Signs:
Vital Signs
Temp Pulse Resp BP Pulse Ox
99 F 63 16 110/64 96
08/09/25 07:00 08/09/25 07:00 08/09/25 07:00 08/09/25 07:00 08/09/25 07:00
Physical Exam
-
General: No Apparent Distress
HEENT: Normocephalic, Atraumatic and Other (Right ear shows mild acute otitis media)
Respiratory: Negative Wheezes
Cardiac: Regular Rhythm and S1/S2
GI: Soft
Neuro: AO x 3
Psych: Calm
Data Reviewed
-
Total Time Spent with Patient (in minutes): 42
Labs: Labs Reviewed by me
--- NOTE | 2025-08-09 10:30 | W.DCSUMMARY ---
Discharge Summary
Discharge Data
Date of Admission: 08/08/25
Date of Discharge: 08/09/25
-
Pending Results: No
Hospital Course
55 y/o F, hx of Eczema/Psoriatic Arthritis/Alopecia Areata on Rinvoq, HLD, type 2 DM presented to ER 08/08 with severe right ear pain. CT imaging was concerning for radiographic evidence of right otomastoiditis; ENT evaluated and felt patient had no
evidence clinically of right otomastoiditis. Patient was diagnosed with severe R otitis media and was recommended pain control and antibiotics. The next day, her pain improved and ENT recommended discharge with Augmentin along with pain control.
Patient will follow up with ENT in 1 week. She was instructed to also take Flonase nasal spray to help with symptoms and also take a probiotic while taking Augmentin. She was instructed to hold Rinvoq until her infection is fully treated. She was
discharged home 08/09/25
Discharge Plan
-
Patient Disposition: Home (Routine Discharge)
Discharge Diagnosis/Procedures: R otitis media
Condition: Fair
Diet: Diabetic, Carb Controlled
Activity: As tolerated
Bathing Restrictions: None
Activity Restrictions/Additional Instructions:
per Dr. Hamm: relax your jaw and avoid clenching her teeth. Should avoid chewy and crunchy foods. He also recommended Flonase nasal spray which can be obtained OTC. A probiotic is recommended for 1 month due to antibiotic usage for 10 days.
Referrals:
Abram Rubio MD [Family Provider]
Shaun Hamm MD [Active, Otology] - in one week
Prescriptions:
New
acetaminophen 325 mg Tablet
650 mg PO Q4HPRN PRN (Reason: mild pain/ fever>100.5F) Qty: 100 0RF
ibuprofen [Advil] 200 mg tablet
400 mg PO Q6H PRN (Reason: fever or pain) Qty: 100 0RF
tramadol 50 mg tablet
50 mg PO Q8H PRN (Reason: Pain) Qty: 20 0RF
fluticasone propionate [Flonase Allergy Relief] 50 mcg/actuation spray,suspension
1 spray intranasal Q12H Qty: 16 0RF
amoxicillin-pot clavulanate 875-125 mg tablet
1 tab PO Q12H Qty: 28 0RF
Continued
metformin 500 MG tablet
500 mg PO BID
zolpidem 10 MG tablet
10 mg PO HS
rosuvastatin 10 MG tablet
10 mg PO HS
Wegovy 2.4 mg/0.75 mL Pen Injector
2.4 mg SC MO
Vtama 1 % Cream
1 applic TOPICAL DAILYPRN PRN (Reason: skin issuses)
Held
Rinvoq 30 mg Tablet Extended Release 24 Hr
30 mg PO DAILY
Hold Instructions: until infection clears
Discontinued
amoxicillin 875 mg Tablet
875 mg PO BID
Rx Instructions:
for 10 days starting 08.05.25
Discharge Orders:
Discharge Patient (As Directed); Ordered 08/09/25
Ordered By: Wanda Mathew
Discharge Date and Time
Print Language: PORTUGUESE
[2025-08-09 10:50] LABS: Glycohemoglobin (HgbA1c) 5.5 % (4.0-5.9)
[2025-08-09 11:00] VITALS: BP 124/14
[2025-08-09 11:36] LABS: Glucose - Point of Care 91 mg/dl (70-99)
== END 2025-08-09 12:13 | disposition home or self-care (01) | DRG 152 ==
LOC: 4 EAST ACU 13:43
PROVIDERS: Physician Assistant Medical; ADMITTING PHYSICIAN Internal Medicine; ATTENDING PHYSICIAN Internal Medicine; EMERGENCY PHYSICIAN Emergency Medicine; FAMILY PHYSICIAN Hospitalist; OTHER PHYSICIAN Otolaryngology Facial Plastic Surgery
DX: H66.91 Otitis media, unspecified, right ear (principal); J18.9 Pneumonia, unspecified organism; J44.1 Chronic obstructive pulmonary disease with (acute) exacerbation; H70.001 Acute mastoiditis without complications, right ear; H92.01 Otalgia, right ear; L40.50 Arthropathic psoriasis, unspecified; L63.9 Alopecia areata, unspecified; E11.9 Type 2 diabetes mellitus without complications; H91.91 Unspecified hearing loss, right ear; E78.5 Hyperlipidemia, unspecified; R00.0 Tachycardia, unspecified; F41.9 Anxiety disorder, unspecified; E66.812 Obesity, class 2; K58.8 Other irritable bowel syndrome; F17.210 Nicotine dependence, cigarettes, uncomplicated; Z79.84 Long term (current) use of oral hypoglycemic drugs; Z79.51 Long term (current) use of inhaled steroids; Z68.37 Body mass index [BMI] 37.0-37.9, adult; Z87.892 Personal history of anaphylaxis; Z79.85 Long-term (current) use of injectable non-insulin antidiabetic drugs; Z88.6 Allergy status to analgesic agent; Z88.1 Allergy status to other antibiotic agents
CPT/HCPCS: 70486; 80048; 80053; 82962; 83036; 85025; 85027; 85652; 86140; 87040; 87641; 96365; 96366; 96367; 96375; 99284